=== PATIENT | female | born 1990 | race Caucasian/White ===

== ENCOUNTER → 2018-08-26 | Outpatient (CLI) | payer OTHER | LOC: OD 11:31 | PROVIDERS: ATTEND Nurse Practitioner Primary Care | DX: O20.0 Threatened abortion (principal); Z87.59 Personal history of other complications of pregnancy, childbirth and the puerperium | CPT/HCPCS: 36415; 84144; 84702 ==

== ENCOUNTER → 2018-08-28 | Outpatient (CLI) | payer OTHER | LOC: OD 09:00 | PROVIDERS: ATTEND Nurse Practitioner Primary Care | DX: O20.0 Threatened abortion (principal); Z87.59 Personal history of other complications of pregnancy, childbirth and the puerperium | CPT/HCPCS: 36415; 84144; 84702 ==

== ENCOUNTER → 2018-09-24 | Outpatient (CLI) | payer OTHER ==
[2018-09-26 02:36] LABS: DILUTE RUSSELL VIPOR VENOM 33.3 sec (0.0-47.0); PTT-LA 29.5 sec (0.0-51.9); THROMBIN TIME 17.7 sec (0.0-23.0)
[2018-09-26 17:46] LABS: LUPUS PANEL INTERPRETATION Comment: (.)
== END ==
LOC: OD 13:05
PROVIDERS: ATTEND Obstetrics & Gynecology
DX: O03.9 Complete or unspecified spontaneous abortion without complication (principal); O26.20 Pregnancy care for patient with recurrent pregnancy loss, unspecified trimester
CPT/HCPCS: 36415; 83520; 85597; 85598; 85613; 85730; 85732; 86146; 86147; 86148; 86225; 86235; 86849

== ENCOUNTER 2020-07-19 00:01 | Inpatient (IN) | payer OTHER ==
[2020-07-19 00:49] LABS: APPEARANCE,URINE SLIGHTLY-CLOUDY; BILIRUBIN,URINE NEGATIVE (NEGATIVE); COLOR,URINE YELLOW; GLUCOSE, URINE NEGATIVE (NEGATIVE); KETONES,URINE NEGATIVE (NEGATIVE); LEUKOCYTE ESTERASE,URINE MODERATE (NEGATIVE); NITRITE,URINE NEGATIVE (NEGATIVE); PROTEIN,URINE NEGATIVE (NEGATIVE); UROBILINOGEN,URINE NEGATIVE mg/dL (<2.0)
[2020-07-19] MEDS ORDERED: LIDOCAINE 1% INJ-PF (10 MG/ML) 30 ML SDV ONE (01:42)
[2020-07-19] MEDS ORDERED: MISOPROSTOL 0.2 MG TABLET ONE (01:42)
[2020-07-19] MEDS ORDERED: OXYTOCIN 10 UNIT/ML VIAL ONE (01:42)
[2020-07-19] MEDS ORDERED: OXYTOCIN/0.9 % SODIUM CHLORIDE 30 UNIT/500 ML RTUINJ ONE (01:43)
[2020-07-19] MEDS ORDERED: RINGERS SOLUTION,LACTATED 1,000 ML IV PRN (02:14)
[2020-07-19] MEDS ORDERED: RINGERS SOLUTION,LACTATED 1,000 ML IV ONE (02:14)
--- NOTE | 2020-07-19 02:23 | Admission Physical ---
Datetime Report Generated by CPN: 07/19/2020 02:23 CURRENT ADMISSION Chief Complaint: Uterine Contractions Indication for Induction: Not Applicable Admit Impression : Term, Intrauterine Admit Plan: Admit to Unit; Initiate Labor Protocol ALLERGIES Medication Allergies: No Medication Allergies: No Known Allergies (07/19/2020) Latex: No Latex Allergies Food Allergies: none Environmental Allergies: none OBSTETRICAL HISTORY EDC: 07/23/2020 00:00 : 4 Para: 1 Term: 1 : 0 Livin Cesareans: 0 Gestational Diabetes: No Rh Sensitization: No Incompetent Cervix: No HETAL: No Infertility: No ART Treatment: No Uterine Anomaly: No IUGR: No Hx Previous C/S: No Macrosomia: No Hx Loss/Stillborn: No PIH: No Hx : No Placenta Previa/Abruption: No Depression/PP Depression: No PTL/PROM: No Post Hemorrhage: No Current Procedures: Ultrasound Obstetrical History Comments: 2018 G4- Current SEE RECORDS Alcohol: No Marijuana : No Cocaine: No Other Illicit Drugs: No Cigarettes: Never Smoker. 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 Surgery: No Heart Disease: No Hosp/Surgery: Yes Autoimmune Disorder: No Anesthetic Complications: No Kidney Disease: No Abnormal Pap Smear: No Neuro/Epilepsy: No Psychiatric Disorders: No Other Medical Diseases: No Hepatitis/Liver Disease: No Significant Family History: No Varicosities/Phlebitis: No Trauma/Violence : No Thyroid Dysfunction: No Medical History Comments: wisdom teeth, child , adenoids, cyst removal on lower back INFECTIOUS HISTORY Gonorrhea: No Genital Herpes: No Chlamydia: No Tuberculosis: No Syphilis: No Hepatitis: No HIV/AIDS Exposure: No Rash or Viral Illness: No HPV: No PHYSICAL EXAM General: Normal HEENT: Normal Neurologic: Normal Thyroid: Normal Heart: Normal Lungs: Normal Breast: Deferred Back: Normal Abdomen: Normal Genitourinary Exam: Normal Extremities: Normal DTRs: Normal Pelvic Type: Adequate FETUS A EGA: 39.3 PLANS FOR LABOR AND DELIVERY Labor and Delivery: None Pain Management: Natural Feeding Preference: Breast Benefit of Breast Feed Discussed: Yes Circumcision: N/A INFORMED CONSENT Signature: with User ID: [email or web address]
[2020-07-19] MEDS ORDERED: ACETAMINOPHEN 650 MG SUPP.RECT PR PRN (02:43)
[2020-07-19] MEDS ORDERED: MEASLES,MUMPS&RUBELLA VACC/PF 0.5 ML VIAL SUBCUT PRN (02:43)
[2020-07-19] MEDS ORDERED: DIPH/PERTUSS(ACELL)/TETANUS VAC/PF 0.5 ML SYR (>=10YO) IM PRN (02:43)
[2020-07-19] MEDS ORDERED: ZOLPIDEM TARTRATE 5 MG TABLET PO PRN (02:43)
[2020-07-19] MEDS ORDERED: MAGNESIUM HYDROXIDE SUSP 30 ML UDCUP PO PRN (02:43)
[2020-07-19] MEDS ORDERED: BENZOCAINE/MENTHOL AEROSOL SPRAY 56 ML TOP PRN (02:43)
[2020-07-19] MEDS ORDERED: PROMETHAZINE HCL 25 MG TABLET PO PRN (02:43)
[2020-07-19] MEDS ORDERED: OXYTOCIN/0.9 % SODIUM CHLORIDE 30 UNIT/500 ML RTUINJ IV PRN (02:43)
[2020-07-19] MEDS ORDERED: NA PHOS,M-B/NA PHOS,DI-BA (ADULT) 133 ML ENEMA PR PRN (02:43)
[2020-07-19] MEDS ORDERED: DIPHENHYDRAMINE HCL 25 MG CAPSULE PO PRN (02:43)
[2020-07-19] MEDS ORDERED: PROMETHAZINE HCL 25 MG SUPP.RECT PR PRN (02:43)
[2020-07-19] MEDS ORDERED: DIBUCAINE 1% OINTMENT 28 GM TP PRN (02:43)
[2020-07-19] MEDS ORDERED: PSEUDOEPHEDRINE HCL 30 MG TABLET PO PRN (02:43)
[2020-07-19] MEDS ORDERED: PROMETHAZINE HCL INJ 25 MG/1 ML VIAL IV PRN (02:43)
[2020-07-19] MEDS ORDERED: GLYCERIN/WITCH HAZEL LEAF 1 EACH MED..WIPE TP PRN (02:43)
[2020-07-19] MEDS ORDERED: ACETAMINOPHEN WITH CODEINE #3 TABLET PO PRN (02:43)
[2020-07-19] MEDS ORDERED: IBUPROFEN 800 MG TABLET ONE (02:48)
[2020-07-19 04:04] LABS: ABSOLUTE EOSINOPHILS # (AUTO) 0.1 10^3/uL (0.0-0.6); ABSOLUTE LYMPHOCYTES (AUTO) 1.7 10^3/uL (0.5-4.7); ABSOLUTE MONOCYTES (AUTO) 0.5 10^3/uL (0.1-1.4); ABSOLUTE NEUT (AUTO) 10.6 10^3/uL (1.7-8.2); BASOPHILS % (AUTO) 0.2 % (0-2); EOSINOPHILS % (AUTO) 0.6 % (0-6); HEMATOCRIT 32.1 % (36.0-47.0); HEMOGLOBIN 11.5 g/dL (12.0-15.5); LYMPHOCYTES % (AUTO) 13.5 % (13-45); MEAN CORPUSCULAR HEMOGLOBIN 29.7 pg (27.0-33.4); MEAN CORPUSCULAR HGB CONC 35.7 g/dL (32.0-36.0); MEAN CORPUSCULAR VOLUME 83 fl (80-97); MONOCYTES % (AUTO) 3.9 % (3-13); PLATELET COUNT 258 10^3/uL (150-450); RED BLOOD COUNT 3.86 10^6/uL (3.72-5.28); SEGMENTED NEUTROPHILS % (AUTO) 81.8 % (42-78); TOTAL CELLS COUNTED % (AUTO) 100 %; WHITE BLOOD COUNT 12.9 10^3/uL (4.0-10.5)
--- NOTE | 2020-07-19 04:21 | Birth Certificate Data ---
Cert Data Datetime Report Generated by CPKera: 07/19/2020 04:21 CERTIFICATE DATA 47a. Care: Yes (07/19/2020 00:08:DAWIT Boone) 47b. Date of First Visit: 02/03/2020 00:00 (07/19/2020 00:08:DAWIT Boone) 47c. Date of Last Visit: 07/17/2020 00:00 (07/19/2020 00:08:DAWIT Boone) 47d. Number of Visits: 8 (07/19/2020 00:08:DAWIT Boone) 48a. Number of Prev Live Births: 1 (07/19/2020 00:08:DAWIT Boone) 48b. Now Livin (07/19/2020 00:08:DAWIT Boone) 48c. Live Births Now : 0 (07/19/2020 00:08:QS system process) 48d. Date of Last Live : 06/06/2021 00:00 (07/19/2020 00:08:DAWIT Boone) 48e. Losses: 2 (07/19/2020 00:08:DAWIT Boone) 48f. Date of Last Preg Loss: 09/09/2018 00:00 (07/19/2020 00:08:DAWIT Boone) RISK FACTORS IN THIS 49a. Diabetes: No (07/19/2020 00:08:Christina Cuello RN) 49b. Hypertension: No (07/19/2020 00:08:Christina Cuello RN) 49c. Previous Births: 0 (07/19/2020 00:08:Christina Cuello RN) 49d. Stillborns: No (07/19/2020 00:08:DAWIT Boone) 49d. IUGR: No (07/19/2020 00:08:DAWIT Boone) 49e. Infertility Treatment: No (07/19/2020 00:08:Christina Cuello RN) 49f. Previous Cesareans: 0 (07/19/2020 00:08:Christina Cuello RN) Mother's Height 50b. Height Inches: 64 (07/19/2020 02:36:QS system process) Mother's Weight 51a. Pre- Weight (lbs): 239 (07/19/2020 00:08:DAWIT Boone) 51b. Weight at Delivery (lbs): 240 (07/19/2020 00:14:QS system process) 52. Dt Last Normal Menses Began: 10/16/2019 00:00 (07/19/2020 00:08:DAWIT Boone) Infections Present/Treated 53a. Gonorrhea: No (07/19/2020 00:08:Christina Cuello RN) Results this Hospital Visit : Negative (07/19/2020 00:08:DAWIT Boone) 53b. Syphilis: No (07/19/2020 00:08:Christina Cuello RN) 53c. Chlamydia: No (07/19/2020 00:08:Christina Cuello RN) Results this Hospital Visit: Negative (07/19/2020 00:08:DAWIT Boone) 53d. Hepatitis B: No (07/19/2020 00:08:Christina Cuello RN) Results this Hospital Visit: Negative (07/19/2020 00:08:DAWIT Boone) 53e. Hepatitis C: Negative (07/19/2020 00:08:DAWIT Boone) 53h. Mother Tested for HBsAG: Yes (07/19/2020 00:08:DAWIT Boone) 53i. Date Tested: 12/22/2019 00:00 (07/19/2020 00:08:DAWIT Boone) 53j. Test Result: Negative (07/19/2020 00:08:DAWIT Boone) Obstetric Procedures 54a, b, c. Obstetric Procedures: Ultrasound (07/19/2020 00:08:DAWIT Boone) Cigarette Smoking Cigarette Smoking: Never Smoker. [id number] (07/19/2020 00:08:DAWIT Boone) 55a. 3 Months Before Preg - Ci (07/19/2020 00:08:Christina Cuello RN) 55a. Packs: 0 (07/19/2020 00:08:Christina Cuello RN) 55b. 1st Trimester of Preg- Ci (07/19/2020 00:08:Christina Cuello RN) 55b. Packs: 0 (07/19/2020 00:08:Christina Cuello RN) 55c. 2nd Trimester of Preg- Ci (07/19/2020 00:08:Christina Cuello RN) 55c. Packs: 0 (07/19/2020 00:08:Christina Cuello RN) 55d. 3rd Trimester of Preg- Ci (07/19/2020 00:08:Christina Cuello RN) 55d. Packs: 0 (07/19/2020 00:08:Christina Cuello RN) Onset of Labor 56a. PROM >12 Hrs: 6.97 (07/19/2020 02:00:QS system process) 56b. Precipitous Labor <3 Hrs: 1 (07/19/2020 00:08:QS system process) 56c. Prolonged Labor > 20 Hrs: 1 (07/19/2020 00:08:QS system process) 57a. Induction of Labor: N/A (07/19/2020 00:08:DAWIT Boone) 57c. Non-Vertex Presentation A: Vertex (07/19/2020 00:08:DAWIT Boone) 57d. Steroids - Lung Mat: None (07/19/2020 00:08:DAWIT Boone) 57d. Steroids - Lung Mat: Not Applicable (07/19/2020 00:08:DAWIT Boone) 57f. Mat [place] or Temp >100.4: 97.8 (07/19/2020 00:08:DAWIT Boone) 57g. Moderate/Heavy Meconium: Clear (07/19/2020 02:00:Christina Cuello RN) 57h. Intolerance of Labor: N/A (07/19/2020 00:08:Christina Cuello RN) : N/A (07/19/2020 00:08:Christina Cuello RN) 57i. Epidural/Spinal Anesthesia: None (07/19/2020 00:08:DAWIT Boone) Method of Delivery 58a. Forceps - Unsuccessful A: N/A (07/19/2020 00:08:Annette Bellavance, RNC) 58b. Vacuum - Unsuccessful A: N/A (07/19/2020 00:08:Annette Bellavance, RNC) 58c. Presentation at 58c. Presentation at - A : Vertex (07/19/2020 00:08:Annette Bellavance, RN) 58c. Presentation at - A : N/A (07/19/2020 00:08:Annette Bellavance, RN) 58c. Presentation at - A : Cephalic (07/19/2020 00:08:Annette Bellavance, [facility]) Final Route and Method of Del 58d. Baby A Route/Delivery: Vaginal (07/19/2020 02:28:Christina Cuello RN) 58e. Trial of Labor Attempted: No (07/19/2020 00:08:Annette Bellavance, RNC) 58e. Trial of Labor Attempted A: N/A (07/19/2020 00:08:Annette Jacqueluciecatinae, RNC) 58e. Trial of Labor Attempted B: N/A (07/19/2020 00:08:Annette Jacquelucience, RNC) Maternal Morbidity 59b. 3rd or 4th Degree Lacs: Vaginal (07/19/2020 00:08:Matheus Thurston MD ([facility])) 59b. 3rd or 4th Degree Lacs: superficial (07/19/2020 00:08:Christina Cuello RN) Birthweight Baby A: 3433 (07/19/2020 00:08:Christina Cuello RN) 60a. Pounds : 7 (07/19/2020 00:08:QS system process) 60b. Ounces: 9 (07/19/2020 00:08:QS system process) 61. GA at Delivery Baby A: 39.0 (07/19/2020 00:08:Annette Betzaida, [facility]) : Full Term- 39- 40.6 Weeks (07/19/2020 00:08:QS system process) 62a. 5 Minute Baby A: 9 (07/19/2020 00:08:QS system process)
--- NOTE | 2020-07-19 04:21 | Delivery Summary ---
Del Sum A-C Datetime Report Generated by CPN: 07/19/2020 04:21 DELIVERY PERSONNEL DELIVERY PERSONNEL: [id number] Delivery Doctor:: Matheus Thurston MD Labor and Delivery Nurse:: Christina Cuello, boring mill set up operator vertical Nurse:: Annette Elliottfrank, RNC Binding Cutter/MANAGER OF SUSTAINABILITY: Kassie Green, ST MATERNAL INFORMATION Delivery Anesthesia: None Medications After Delivery: Pitocin 30 Units in 500ml NS/D5W Maternal Complications: None LABOR SUMMARY EDC: 07/23/2020 00:00 No. Babies in Womb: 1 Attempted: No Labor Anesthesia: None LABOR INFORMATION Reason for Induction: Not Applicable Onset of Labor: 07/19/2020 01:00 Complete Dilatation: 07/19/2020 02:20 Oxytocin: N/A Group B Beta Strep: Negative Antibiotics # of Doses: 0 Name of Antibiotic Given: n/a Steroids Given: None Reason Steroids Not Administered: Not Applicable MEMBRANES Membranes Rupture Method: Spontaneous Rupture of Membranes: 07/18/2020 19:30 Length of Rupture (hr): 6.97 Amniotic Fluid Color: Clear Amniotic Fluid Amount: Small Amniotic Fluid Odor: Normal STAGES OF LABOR Stage 1 hr: 1 Stage 1 min: 20 Stage 2 hr: 0 Stage 2 min: 8 Stage 3 hr: 0 Stage 3 min: 3 Total Time in Labor hr: 1 Total Time in Labor min: 31 VAGINAL DELIVERY Episiotomy: None Laceration #1: Vaginal Laceration Extension #1: N/A Other Laceration: superficial Laceration Repair: Yes Sponge Count Correct: Yes Sharps Count Correct: Yes CSECTION DELIVERY Primary Indication: N/A Secondary Indication: N/A CSection Incidence: N/A Labor: N/A Elective: N/A CSection Incision: N/A BABY A INFORMATION Infant Delivery Date/Time: 07/19/2020 02:28 Method of Delivery: Vaginal Nurse Controlled Delivery: No Born in Route : No : N/A Forceps: N/A Vacuum Extraction: N/A Shoulder Dystocia : No PRESENTATION/POSITION BABY A Presentation: Cephalic Cephalic Presentation: Vertex Vertex Position: Left Occipital Anterior Breech Presentation: N/A PLACENTA INFORMATION BABY A Placenta Delivery Time : 07/19/2020 02:31 Placenta Method of Delivery: Spontaneous Placenta Status: Delivered SCORES BABY A Heart Rate 1 min: >100 bpm Resp Effort 1 min: Good Cry Reflex Irritability 1 min: Cough or Sneeze or Pulls Away Muscle Tone 1 min: Active Motion Color 1 min: Blue/Pale SCORE 1 MIN: 8 Heart Rate 5 min: >100 bpm Resp Effort 5 min: Good Cry Reflex Irritability 5 min: Cough or Sneeze or Pulls Away Muscle Tone 5 min: Active Motion Color 5 min: Body [place], Extremities Blue Resuscitation Effort 5 min: Tactile Stimulation SCORE 5 MIN: 9 INFANT INFORMATION BABY A Gestational Age at Delivery: 39.0 Gestational Status: Full Term- 39- 40.6 Weeks Infant Outcome : Liveborn Infant Condition : Stable Sex: Female IDENTIFICATION BABY A Verification Date/Time: 07/19/2020 02:59 ID Band Number: [id number] Mother's Name Verified: Yes Infant RN Verifying : Ayesha Cuello JOSE Additional Verifying Personnel: Gissel Monteiro WEIGHT/LENGTH BABY A Infant Birthweight (gm): 3433 Weight (lb): 7 Weight (oz): 9 Infant Length (in): 20.25 Infant Length (cm): 51.44 CORD INFORMATION BABY A No. Cord Vessels: 3 Nuchal Cord : N/A Cord Blood Taken: Yes-For Eval (Mom's Blood Type - or O+) Infant Suction: None ASSESSMENT BABY A Infant Complications: None Physical Findings at Delivery: Within Normal Limits Respirations: Appears Normal Skin to Skin: Yes Skin to Skin Time (min): 45 Senior Business Consultant/ALS Called : No Care By: D Betzaida RN Transferred To: Remains with Mother BABY B INFORMATION : N/A SIGNATURES Signature: with User ID: [email or web address]
--- NOTE | 2020-07-19 04:27 | Warning Signs in Babies ---
VOD Warning Signs Datetime Report Generated by N: 07/19/2020 04:27 VOD#608 -Warning Signs in Babies: Viewed with Parent(s)/Family (07/19/2020 04:15:Christina Cuello RN)
[2020-07-19] MEDS: IBUPROFEN 800 MG TABLET PO SCH ×3 (05:36→22:19)
[2020-07-19] MEDS: FERROUS SULFATE 325 MG TABLET PO SCH ×2 (09:30→17:07)
[2020-07-19] MEDS: SENNOSIDES/DOCUSATE 8.6-50 MG 1 EACH TABLET PO SCH (09:30)
[2020-07-19] MEDS: DOCUSATE SODIUM 100 MG CAPSULE PO SCH ×2 (09:30→17:07)
[2020-07-19] MEDS: FAMOTIDINE 20 MG TABLET PO SCH ×2 (09:30→22:21)
[2020-07-19] MEDS: PRENATAL VITAMIN W DHA CAPSULE PO SCH (09:30)
--- NOTE | 2020-07-19 14:28 | PDOC PROGRESS REPORT ---
Subjective-OB Progress Note for:: 07/19/20 Subjective: 29yo G4 now P2 s/p - delivery day. Ambulating, voiding and bonding well with baby, reports pain well controlled with medication no concerns today. Physical Exam (OB) Vital Signs: Temp Pulse Resp BP Pulse Ox 98.1 F 87 17 101/52 L 100 07/19/20 07:41 07/19/20 07:41 07/19/20 07:41 07/19/20 07:41 07/19/20 07:41 Intake & Output 07/18/20 07/19/20 07/20/20 06:59 06:59 06:59 Intake Total 300 Balance 300 Weight 109 kg - General General Appearance: Appears well In distress: None - PIH/Pre-Eclampsia DTR's: 2 + Clonus: Negative Headache: Absent Epigastric Pain: No Visual Changes: No - Maternal Morbidity 59. Maternal Morbidity (serious complications experinced by the mother associated with labor and delivery: None of the above - Episiotomy/Laceration Site Condition: Well Approximated - Lochia Lochia Amount: Small 10-25 ml Lochia Color: Rubra/Red - Abdomen Description: Soft, Round Hernia Present: No Fundal Description: Firm, Midline Fundal Height: u/u - u/2 - Respiratory Respiratory Status: No respiratory distress - Extremities Upper extremity: Normal inspection Lower extremities: Normal inspection - Neurological Orientation: AAOx4 - Psychological Associated symptoms: Normal affect, Normal mood Objective-Diagnostic Laboratory: 07/19/20 03:50 07/19/20 07/19/20 07/19/20 00:15 03:50 03:50 WBC 12.9 H RBC 3.86 Hgb 11.5 L Hct 32.1 L MCV 83 MCH 29.7 MCHC 35.7 RDW 14.0 Plt Count 258 Seg Neutrophils % 81.8 H Urine Color YELLOW Urine Appearance SLIGHTLY-CLOUDY Urine pH 6.0 Ur Specific [place] 1.020 Urine Protein NEGATIVE Urine Glucose (UA) NEGATIVE Urine Ketones NEGATIVE Urine Blood MODERATE H Urine Nitrite NEGATIVE Ur Leukocyte Esterase MODERATE H Blood Type B POSITIVE Antibody Screen NEGATIVE Assessment and Plan(PN) - Assessment and Plan (1) Vaginal delivery Is this a current diagnosis for this admission?: Yes Plan: routine pp care (2) Obstetric vaginal laceration Qualifiers: Perineal laceration presence: without perineal laceration Qualified Code(s): O71.4 - Obstetric high vaginal laceration alone Is this a current diagnosis for this admission?: Yes Plan: continue to monitor for s/s of infection - Time Spent with Patient Time with patient: Less than 15 minutes Medications reviewed and adjusted accordingly: Yes - Disposition Anticipated Discharge Disposition: Home, Self Care Anticipated Discharge Timeframe: within 48 hours
[2020-07-20] MEDS: IBUPROFEN 800 MG TABLET PO SCH ×3 (06:07→21:33)
[2020-07-20 06:58] LABS: HEMATOCRIT 31.1 % (36.0-47.0); HEMOGLOBIN 10.8 g/dL (12.0-15.5); MEAN CORPUSCULAR HEMOGLOBIN 29.6 pg (27.0-33.4); MEAN CORPUSCULAR HGB CONC 34.9 g/dL (32.0-36.0); MEAN CORPUSCULAR VOLUME 85 fl (80-97); PLATELET COUNT 244 10^3/uL (150-450); RED BLOOD COUNT 3.67 10^6/uL (3.72-5.28); RED CELL DISTRIBUTION WIDTH 13.7 % (11.5-14.0); WHITE BLOOD COUNT 10.1 10^3/uL (4.0-10.5)
[2020-07-20] MEDS: SENNOSIDES/DOCUSATE 8.6-50 MG 1 EACH TABLET PO SCH (09:25)
[2020-07-20] MEDS: FAMOTIDINE 20 MG TABLET PO SCH ×2 (09:25→21:34)
[2020-07-20] MEDS: PRENATAL VITAMIN W DHA CAPSULE PO SCH (09:25)
[2020-07-20] MEDS: FERROUS SULFATE 325 MG TABLET PO SCH ×2 (09:25→17:33)
[2020-07-20] MEDS: DOCUSATE SODIUM 100 MG CAPSULE PO SCH ×2 (09:25→17:33)
--- NOTE | 2020-07-20 11:31 | PDOC PROGRESS REPORT ---
Subjective-OB Progress Note for:: 07/20/20 Physical Exam (OB) Vital Signs: Temp Pulse Resp BP Pulse Ox 97.6 F 72 18 116/71 100 07/20/20 10:00 07/20/20 08:00 07/20/20 08:00 07/20/20 08:00 07/20/20 08:00 Intake & Output 07/19/20 07/20/20 07/21/20 06:59 06:59 06:59 Intake Total 1500 Balance 1500 Weight 109 kg - PIH/Pre-Eclampsia DTR's: 1 + Clonus: Negative Headache: Absent Epigastric Pain: No Visual Changes: No - Maternal Morbidity 59. Maternal Morbidity (serious complications experinced by the mother associated with labor and delivery: None of the above - Lochia Lochia Amount: Scant < 10 ml Lochia Color: Rubra/Red - Abdomen Description: Soft Hernia Present: No Bowel Sounds: Normoactive Flatus Presence: Present Stool: No Fundal Description: Firm, Midline Fundal Height: u/u - u/2 Objective-Diagnostic Laboratory: 07/20/20 06:36 07/20/20 06:36 WBC 10.1 RBC 3.67 L Hgb 10.8 L Hct 31.1 L MCV 85 MCH 29.6 MCHC 34.9 RDW 13.7 Plt Count 244 Assessment and Plan(PN) - Time Spent with Patient Time with patient: Less than 15 minutes Medications reviewed and adjusted accordingly: Yes - Disposition Anticipated Discharge Disposition: Home, Self Care Anticipated Discharge Timeframe: within 36 hours
[2020-07-20] MEDS: NYSTATIN TOPICAL POWDER 15 GM TP PRN (23:47)
[2020-07-21] MEDS: IBUPROFEN 800 MG TABLET PO SCH (05:51)
[2020-07-21 09:00] VITALS: BP 124/76
--- NOTE | 2020-07-21 10:04 | PDOC PROGRESS REPORT ---
Subjective-OB Progress Note for:: 07/21/20 Subjective: Doing well, no c/o, ready to go home Physical Exam (OB) Vital Signs: Temp Pulse Resp BP Pulse Ox 97.5 F 77 20 124/76 99 07/21/20 08:00 07/21/20 08:00 07/21/20 08:00 07/21/20 08:00 07/21/20 08:00 Intake & Output 07/20/20 07/21/20 07/22/20 06:59 06:59 06:59 Intake Total 1500 Balance 1500 - PIH/Pre-Eclampsia DTR's: 1 + Clonus: Negative Headache: Absent Epigastric Pain: No Visual Changes: No - Maternal Morbidity 59. Maternal Morbidity (serious complications experinced by the mother associa nader with labor and delivery: None of the above - Lochia Lochia Amount: Small 10-25 ml Lochia Color: Rubra/Red - Abdomen Description: Soft Hernia Present: No Fundal Description: Firm, Midline Fundal Height: u/u - u/2 Objective-Diagnostic Laboratory: 07/20/20 06:36 Assessment and Plan(PN) - Assessment and Plan (1) Vaginal delivery Is this a current diagnosis for this admission?: Yes (2) Obstetric vaginal laceration Qualifiers: Perineal laceration presence: without perineal laceration Qualified Code(s): O71.4 - Obstetric high vaginal laceration alone Is this a current diagnosis for this admission?: Yes - Time Spent with Patient Time with patient: Less than 15 minutes Medications reviewed and adjusted accordingly: Yes - Disposition Anticipated Discharge Disposition: Home, Self Care Anticipated Discharge Timeframe: within 24 hours - home today
--- NOTE | 2020-07-21 10:08 | PDOC DISCHARGE SUMMARY ---
Impression - Admit/DC Date/PCP Admission Date/Primary Care Provider: 07/19/20 01:15 PAULINE PAUL MD Discharge Date: 07/21/20 - Discharge Diagnosis (1) Vaginal delivery Is this a current diagnosis for this admission?: Yes (2) Obstetric vaginal laceration Is this a current diagnosis for this admission?: Yes - Additional Information Resuscitation Status: Full Code Discharge Diet: As Tolerated, Regular Discharge Activity: Activity As Tolerated Referrals: PAULINE PAUL MD [Primary Care Provider] - (rtc 4 weeks) Home Medications: Prenat 115/Iron Fum/Folic/Dss [ 19 Tablet] 1 tab PO DAILY 07/19/20 HPI Gestational Age: 39 Reason(s) for Admission: Onset of Labor Procedures: Ultrasound Intrapartum Procedure(s): Spontaneous Vaginal Delivery Hospital Course Hospital Course: routine 59. Maternal Morbidity (serious complications experinced by the mother associated with labor and delivery: None of the above Results Laboratory Results: WBC 10.1 10^3/uL (4.0-10.5) 07/20/20 06:36 RBC 3.67 10^6/uL (3.72-5.28) L 07/20/20 06:36 Hgb 10.8 g/dL (12.0-15.5) L 07/20/20 06:36 Hct 31.1 % (36.0-47.0) L 07/20/20 06:36 MCV 85 fl (80-97) 07/20/20 06:36 MCH 29.6 pg (27.0-33.4) 07/20/20 06:36 MCHC 34.9 g/dL (32.0-36.0) 07/20/20 06:36 RDW 13.7 % (11.5-14.0) 07/20/20 06:36 Plt Count 244 10^3/uL (150-450) 07/20/20 06:36 Lymph % (Auto) 13.5 % (13-45) 07/19/20 03:50 [place] % (Auto) 3.9 % (3-13) 07/19/20 03:50 Eos % (Auto) 0.6 % (0-6) 07/19/20 03:50 Baso % (Auto) 0.2 % (0-2) 07/19/20 03:50 Absolute Neuts (auto) 10.6 10^3/uL (1.7-8.2) H 07/19/20 03:50 Absolute Lymphs (auto) 1.7 10^3/uL (0.5-4.7) 07/19/20 03:50 Absolute Monos (auto) 0.5 10^3/uL (0.1-1.4) 07/19/20 03:50 Absolute Eos (auto) 0.1 10^3/uL (0.0-0.6) 07/19/20 03:50 Absolute Basos (auto) 0.0 10^3/uL (0.0-0.2) 07/19/20 03:50 Seg Neutrophils % 81.8 % (42-78) H 07/19/20 03:50 Urine Color YELLOW 07/19/20 00:15 Urine Appearance SLIGHTLY-CLOUDY 07/19/20 00:15 Urine pH 6.0 (5.0-9.0) 07/19/20 00:15 Ur Specific [place] 1.020 07/19/20 00:15 Urine Protein NEGATIVE mg/dL (NEGATIVE) 07/19/20 00:15 Urine Glucose (UA) NEGATIVE mg/dL (NEGATIVE) 07/19/20 00:15 Urine Ketones NEGATIVE mg/dL (NEGATIVE) 07/19/20 00:15 Urine Blood MODERATE (NEGATIVE) H 07/19/20 00:15 Urine Nitrite NEGATIVE (NEGATIVE) 07/19/20 00:15 Urine Bilirubin NEGATIVE (NEGATIVE) 07/19/20 00:15 Urine Urobilinogen NEGATIVE mg/dL (<2.0) 07/19/20 00:15 Ur Leukocyte Esterase MODERATE (NEGATIVE) H 07/19/20 00:15 Urine Ascorbic Acid NEGATIVE (NEGATIVE) 07/19/20 00:15 Membranes Rupture POSITIVE (NEGATIVE) H 07/19/20 00:20 Urine Opiates Screen Cancelled 07/19/20 00:15 Urine Methadone Screen Cancelled 07/19/20 00:15 Ur Barbiturates Screen Cancelled 07/19/20 00:15 Ur Phencyclidine Scrn Cancelled 07/19/20 00:15 Ur Amphetamines Screen Cancelled 07/19/20 00:15 U Benzodiazepines Scrn Cancelled 07/19/20 00:15 Urine Cocaine Screen Cancelled 07/19/20 00:15 U Marijuana (THC) Screen Cancelled 07/19/20 00:15 RPR NONREACTIVE (NONREACTIVE) 07/19/20 03:50 Blood Type B POSITIVE 07/19/20 03:50 Antibody Screen NEGATIVE 07/19/20 03:50 Plan Health Concerns: routine Plan of Treatment: dc home, rev S&S to report Goals: no complications Time Spent: Less than 30 Minutes
[2020-07-21] MEDS: NYSTATIN TOPICAL POWDER 15 GM TP PRN (10:59)
== END 2020-07-21 13:27 | disposition home or self-care (01) | DRG 807 ==
LOC: LC 00:01 → LR 01:15 → 2S 04:57
PROVIDERS: ADMIT Obstetrics & Gynecology Gynecology; ATTEND Obstetrics & Gynecology Gynecology
PROC: 10E0XZZ Delivery of Products of Conception, External Approach (ICD-10-PCS; principal; 2020-07-19)
PROC: 0UQG7ZZ Repair Vagina, Via Natural or Artificial Opening (ICD-10-PCS; 2020-07-19)
DX: O71.4 Obstetric high vaginal laceration alone (principal); Z37.0 Single live birth; Z28.21 Immunization not carried out because of patient refusal; Z3A.39 39 weeks gestation of pregnancy
CPT/HCPCS: 36415; 81005; 84112; 85025; 85027; 86592; 86850; 86900; 86901; J2590; J3490